=== PATIENT | female | born 1935 | race Caucasian/White ===

== ENCOUNTER 2018-01-02 19:00 | Emergency (ER) | payer OTHER ==
[~2018-01-02] VITALS: Ht 149.9 cm; Wt 80.0 kg
[~2018-01-02 19:00] MED LIST: ACID CONTROL150 MG PO; ADVIL PM CAPLE1 EAC1 PO; ADVIL200 MG PO; AFRIN15 ML NS; ALLEGRA ALLERG180 MG PO; ALLEGRA180 MG PO; AMLODIPINE BESY10 MG PO; AMLODIPINE BESYL5 MG PO; ASPIR-LOW81 M1 PO; B12 PO; BACTRIM,SEPT1 TABLET PO; BAYER ASPIRIN325 M1 PO; BEANO1 TABLET PO; BENEFIBER236 GM PO; BENEFIBER98 GM PO; BISOPROLOL-HCT1 EACH; CALCIUM 500 +1 EACH PO; CALCIUM CITRAT1 EAC8 PO; CALCIUM CITRATE PO; CARDURA XL4 MG PO; CLONIDINE PO; CLOPIDOGREL75 MG PO; COLCRYS0.6 MG PO; COZAAR100 MG PO; EXFORGE 10/31 TABLET; EXFORGE 10/31 TABLET PO; EXFORGE HCT 101 EAC2 PO; FEXOFENADINE H180 MG PO; FLONASE16 G1 BOTH NARES; FLONASE16 G1 NS; FLOVENT DISKUS1 DIS2 IH; FLUTICASONE PRO16 GM BOTH NARES; FUROSEMIDE40 MG; GAS-X62.5 MG PO; GLUCOPHAGE XR750 MG PO; GLUCOPHAGE1000 MG PO; HYDROCODON-ACE1 EAC7 PO; INCRUSE ELLI62.5 MCG IH; INDOCIN50 MG PO; JANUMET 50/51 TABLET PO; JANUVIA25 M1 PO; K-DUR20 MEQ; KEFLEX500 MG PO; KLOR-CON M2020 MEQ PO; LASIX40 MG PO; LORATADINE10 M3 PO; LOSARTAN POTAS100 MG PO; LOSARTAN POTASS25 MG PO; MECLIZINE HCL25 MG PO; METFORMIN HCL1000 M1; METFORMIN HCL1000 MG PO; METFORMIN HCL500 MG PO; METOPROLOL SUCC50 MG PO; MICROZIDE12.5 M1 PO; NAPROSYN500 MG PO; OMEPRAZOLE20 MG; OSCAL, OYSTER500 MG PO; PENTOXIFYLLINE400 MG; PENTOXIFYLLINE400 MG PO; PEPCID AC20 MG PO; PLAVIX75 MG PO; PRAVACHOL40 MG PO; RANITIDINE HCL150 M1 PO; SIMVASTATIN40 M1 PO; SIMVASTATIN40 MG; SIMVASTATIN40 MG PO; SPIRIVA1 INHALATI IH; ST. JOSEPH ASPI81 MG PO; SYMBICORT60 INHALA1; SYMBICORT60 INHALA1 IH; TRADJENTA5 MG PO; TRENTAL400 MG PO; VICODIN,LORT1 TABLET PO; VISINE MOISTURI30 ML BOTH EYES; VITAMIN B-12250 MCG PO; VITAMIN B-12500 MC2 PO; ZIAC 10/6.251 TABLET PO; ZOFRAN4 MG PO; [UNRECOGNIZED DRUG - OTHER] PO; [UNRECOGNIZED DRUG - OTHER] PO
[2018-01-02 19:36] LABS: HEMATOCRIT 41.1 % (36.0-46.0); HEMOGLOBIN 14.5 G/DL (11.9-15.5); MCH 29.8 PG (29.0-34.0); MCHC 35.3 G/DL (30.0-36.0); MCV 84.6 FL (83-99); PLATELET COUNT 290 K/uL (156-360); RBC DIS.WIDTH-CV 13.3 % (11.8-14.6); RED BLOOD COUNT 4.86 M/uL (3.80-5.20); WHITE BLOOD COUNT 14.5 K/uL (4.1-10.2)
[2018-01-02 19:49] LABS: CHLORIDE 99 mEq/L (99-109); POTASSIUM 4.1 mEq/L (3.7-5.4); SODIUM 138 mEq/L (136-147)
[2018-01-02 19:52] LABS: GLUCOSE 108 mg/dL (70-99); TOTAL PROTEIN 9.1 g/dL (6.4-8.3)
[2018-01-02 19:54] LABS: TOTAL BILIRUBIN 0.4 mg/dL (0.0-1.0)
[2018-01-02 19:55] LABS: ALKALINE PHOSPHATASE 58 IU/L (3-129); CREATININE 1.1 mg/dL (0.6-1.3); GFR ESTIMATE (CALCULATED) 51 mL/min/
[2018-01-02 19:56] LABS: UREA NITROGEN (BUN) 14 mg/dL (9-23)
[2018-01-02 19:57] LABS: AST (GOT) 22 IU/L (2-34)
[2018-01-02 19:58] LABS: ALT (GPT) 17 IU/L (3-49)
[2018-01-02 19:59] LABS: LIPASE 67 U/L (1.0-51.0)
[2018-01-02 20:36] LABS: TROP-I INTERPRETATION NEGATIVE; TROPONIN-I 0.01 ng/mL (0.0-0.30)
[2018-01-02 21:11] LABS: APPEARANCE CLEAR ((CLEAR)); BILIRUBIN NEGATIVE; BLOOD NEGATIVE; COLOR STRAW ((YELLOW)); GLUCOSE (STRIP) NEGATIVE; KETONES NEGATIVE; LEUKOCYTES NEGATIVE; NITRITE NEGATIVE; PROTEIN (STRIP) 30; SPECIFIC GRAVITY 1.008 (1.000-1.030); UROBILINOGEN 0.2 MG/DL (0.2-1.0)
[2018-01-02] MEDS ORDERED: BENTYL10 MG PO (22:14)
[2018-01-02] MEDS ORDERED: ZOFRAN ODT4 MG PO (22:14)
[2018-01-02 22:32] VITALS: BP 139/49
== END 2018-01-02 22:33 | disposition home or self-care (01) ==
LOC: EME 19:00
PROVIDERS: Nurse Practitioner Family
DX: K52.9 Noninfective gastroenteritis and colitis, unspecified (principal); J44.9 Chronic obstructive pulmonary disease, unspecified; K21.9 Gastro-esophageal reflux disease without esophagitis; I10 Essential (primary) hypertension; E78.5 Hyperlipidemia, unspecified; E11.9 Type 2 diabetes mellitus without complications; I25.2 Old myocardial infarction; Z86.73 Personal history of transient ischemic attack (TIA), and cerebral infarction without residual deficits; Z87.891 Personal history of nicotine dependence; Z90.49 Acquired absence of other specified parts of digestive tract; Z79.84 Long term (current) use of oral hypoglycemic drugs; Z79.82 Long term (current) use of aspirin; Z88.0 Allergy status to penicillin; Z88.5 Allergy status to narcotic agent
CPT/HCPCS: 74177; 80053; 81003; 83690; 84484; 85027; 99281; 99285; J2405; J7030

== ENCOUNTER 2018-01-23 19:41 | Emergency (ER) | payer OTHER ==
[~2018-01-23] VITALS: Ht 149.9 cm; Wt 80.6 kg
[~2018-01-23 19:41] MED LIST changes: +BENTYL10 MG PO; +ZOFRAN ODT4 MG PO
[2018-01-23 20:34] LABS: BASOPHIL (%) 0.2 % (0-1); EOSINOPHIL (%) 1.1 % (0-5); EOSINOPHIL COUNT 0.2 K/uL (0-0.3); HEMATOCRIT 35.2 % (36.0-46.0); IMMATURE GRANULOCYTE (%) 0.5 % (0.0-0.7); LYMPHOCYTE (%) 11.2 % (15-42); LYMPHOCYTE COUNT 1.7 K/uL (1.0-2.8); MCH 29.5 PG (29.0-34.0); MCHC 35.2 G/DL (30.0-36.0); MCV 83.6 FL (83-99); MONOCYTE (%) 4.9 % (3-12); MONOCYTE COUNT 0.7 K/uL (0-0.8); NEUTROPHIL (%) 82.1 % (45-76); NEUTROPHIL COUNT 12.1 K/uL (1.8-6.4); PLATELET COUNT 319 K/uL (156-360); RBC DIS.WIDTH-CV 13.1 % (11.8-14.6); RBC DIS.WIDTH-SD 39.1 % (39-53); RED BLOOD COUNT 4.21 M/uL (3.80-5.20); WHITE BLOOD COUNT 14.7 K/uL (4.1-10.2)
[2018-01-23 20:41] LABS: ALBUMIN 4.5 g/dL (3.2-4.8); CHLORIDE 97 mEq/L (99-109); POTASSIUM 4.6 mEq/L (3.7-5.4); SODIUM 130 mEq/L (136-147)
[2018-01-23 20:43] LABS: GLUCOSE 117 mg/dL (70-99)
[2018-01-23 20:44] LABS: HEMOGLOBIN 12.4 G/DL (11.9-15.5); TOTAL PROTEIN 8.2 g/dL (6.4-8.3)
[2018-01-23 20:45] LABS: TOTAL BILIRUBIN 0.3 mg/dL (0.0-1.0)
[2018-01-23 20:47] LABS: ALKALINE PHOSPHATASE 58 IU/L (3-129); CREATININE 1.1 mg/dL (0.6-1.3); GFR ESTIMATE (CALCULATED) 50 mL/min/
[2018-01-23 20:48] LABS: UREA NITROGEN (BUN) 19 mg/dL (9-23)
[2018-01-23 20:49] LABS: AST (GOT) 19 IU/L (2-34)
[2018-01-23 20:50] LABS: ALT (GPT) 10 IU/L (3-49); LIPASE 30 U/L (1.0-51.0)
[2018-01-23 21:03] LABS: APPEARANCE CLEAR ((CLEAR)); BILIRUBIN NEGATIVE; BLOOD MODERATE; COLOR YELLOW ((YELLOW)); GLUCOSE (STRIP) NEGATIVE; KETONES NEGATIVE; LEUKOCYTES LARGE; NITRITE NEGATIVE; PROTEIN (STRIP) 30; SPECIFIC GRAVITY 1.013 (1.000-1.030); UROBILINOGEN 0.2 MG/DL (0.2-1.0)
[2018-01-23 21:18] LABS: BACTERIA 1+ /HPF; EPITHELIAL CELLS RARE /HPF; HYALINE CASTS 0-5 /LPF; MUCUS TRACE /LPF; RED BLOOD CELLS 0-5 /HPF (0-5); UCUL ADDED? YES
[2018-01-23 22:42] LABS: C DIFF TOXIN NEGATIVE (NEGATIVE)
[2018-01-23] MEDS ORDERED: ZOFRAN ODT4 MG PO (22:57)
[2018-01-23] MEDS ORDERED: CIPRO500 MG PO (22:57)
[2018-01-23] MEDS ORDERED: FLAGYL500 MG PO (22:57)
[2018-01-23 23:48] VITALS: BP 146/47
== END 2018-01-23 23:50 | disposition home or self-care (01) ==
LOC: EME 19:41
PROVIDERS: Emergency Medicine
DX: K52.9 Noninfective gastroenteritis and colitis, unspecified (principal); E87.1 Hypo-osmolality and hyponatremia; J44.9 Chronic obstructive pulmonary disease, unspecified; I10 Essential (primary) hypertension; E11.9 Type 2 diabetes mellitus without complications; I25.2 Old myocardial infarction; Z86.73 Personal history of transient ischemic attack (TIA), and cerebral infarction without residual deficits; Z79.02 Long term (current) use of antithrombotics/antiplatelets; Z79.84 Long term (current) use of oral hypoglycemic drugs; Z88.0 Allergy status to penicillin; Z88.5 Allergy status to narcotic agent; Z87.891 Personal history of nicotine dependence; K43.9 Ventral hernia without obstruction or gangrene
CPT/HCPCS: 74177; 80053; 81003; 83690; 85025; 87086 GA; 87493; 87506; 99281; 99284; J2405; J7030